=== PATIENT | male | born 1950 | race Caucasian/White ===

== ENCOUNTER 2021-04-29 08:01 | Outpatient (CLI) | payer MEDICARE, SELFPAY ==
--- NOTE | ~2021-04-29 | MR_ITS ---
EXAMINATION: MR brain/brain stem wo con DATE: 04/29/2021 09:00 INDICATION: Headache, unspecified. TECHNIQUE: Magnetic resonance imaging (MRI) of the brain and brainstem was performed without intraven ous contrast. Sequences included sagittal and axial T1-weighted FSE, axial diffusion-weighted FS EPI, axial T2*-weighted GRE, axial T2-weighted FLAIR Propeller, and axial T2-weighted Propeller. Apparent diffusion coefficient (ADC) maps were created. COMPARISON: None. FINDINGS: There is diffuse brain volume loss. There are scattered areas of nonspecific increased T2-w eighted signal intensity in the cerebral white matter. There is no intracranial hemorrhage or acute i schemic infarct. There is a mass involving the clivus and left parapharyngeal space. The mass measure s 3.6 x 3.6 by approximately 8.3 cm. There is a left otomastoid effusion. There are likely changes of ocular lens replacement surgeries. There is mild mucosal thickening in the ethmoid sinuses. IMPRESSION: 1. Mass involving the clivus and left parapharyngeal space. The differential diagnosis includes chond rosarcoma, lymphoma, plasmacytoma, nasopharyngeal carcinoma, and squamous cell carcinoma. 2. Left otomastoid effusion. 3. Mild nonspecific cerebral white matter disease, which likely represents chronic small vessel ische yemi disease. Reviewed, dictated and finalized at location A. IMPRESSION: 1. Mass involving the clivus and left parapharyngeal space. The differential di agnosis includes chondrosarcoma, lymphoma, plasmacytoma, nasopharyngeal carcino ma, and squamous cell carcinoma. 2. Left otomastoid effusion. 3. 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
== END 2021-04-29 08:02 ==
LOC: MICIMG 08:03
PROVIDERS: PCP Family Medicine; Visit Provider Family Medicine
DX: R51.9 Headache, unspecified (principal); R93.0 Abnormal findings on diagnostic imaging of skull and head, not elsewhere classified
CPT/HCPCS: 70551